=== PATIENT | male | born 1965 | race Caucasian/White ===

== ENCOUNTER 2023-01-21 15:30 | Outpatient (CLI) | payer BC | END 2023-01-21 15:31 | disposition home or self-care (01) | LOC: RAD 15:30 | DX: M45.6 Ankylosing spondylitis lumbar region (principal); M45.4 Ankylosing spondylitis of thoracic region; M47.816 Spondylosis without myelopathy or radiculopathy, lumbar region | CPT/HCPCS: 72040; 72070; 72100 ==